=== PATIENT | female | born 1960 | race Asian ===

== ENCOUNTER 2016-09-22 15:46 | Inpatient (IN) | payer MEDICAID ==
[~2016-09-22] VITALS: Ht 152.4 cm; Wt 54.3 kg
[~2016-09-22 15:46] MED LIST: ALLO300 PO; AMLO-512 PO; ASCO500 PO; ATOR20TA86 PO; ENAL10 PO; HYDR-3110 PO; LEVO500 PO; MECL-111 PO; METF500T4 PO; PIOG45TA PO; TRAM50TA4 PO
[2016-09-22] MEDS ORDERED: NITROGLYCERIN 2% (1 GM=INCH) PACKET TP ONE (16:15)
[2016-09-22] MEDS ORDERED: ASPIRIN 81 MG CHEWABLE TABLET PO ONE (16:15)
[2016-09-22] MEDS ORDERED: NITROGLYCERIN 400 MCG/SUBLINGUAL SPRAY 4.9 GM BOTTLE SL ONE (16:15)
[2016-09-22 16:20] LABS: BASOPHILS % (AUTO) 0.9 % (0.0-2.0); EOSINOPHILS % (AUTO) 7.5 % (1.0-6.0); HEMATOCRIT 37.5 % (36-46); LYMPHOCYTES # (AUTO) 2.5 K/uL (1.0-4.8); MEAN CORPUSCULAR HEMOGLOBIN 29.4 pg (26.0-34.0); MEAN CORPUSCULAR HGB CONC 32.1 G/dL (31.0-37.0); MEAN CORPUSCULAR VOLUME 92 fL (80-100); MONOCYTES # (AUTO) 0.5 K/uL (0.1-1.0); MONOCYTES % (AUTO) 6.2 % (2.0-9.0); NEUTROPHILS # (AUTO) 4.4 K/uL (1.8-7.7); NEUTROPHILS % (AUTO) 54.4 % (40.0-70.0); PLATELET COUNT (AUTO) 274 K/uL (150-450); RED BLOOD CELL COUNT(AUTO) 4.09 MIL/uL (4.00-5.20); RED CELL DISTRIBUTION WIDTH 15.4 % (11.5-14.5)
[2016-09-22 16:33] LABS: ANION GAP 10 mmol/L (8-16); CALCIUM, TOTAL 9.1 mg/dL (8.8-10.5); CARBON DIOXIDE 28 mmol/L (22-29); CHLORIDE 102 mmol/L (98-107); GLOMERULAR FILTR. RATE CALC > 60 mL/min (>60); POTASSIUM 3.4 mmol/L (3.5-5.1); SODIUM SERUM 140 mmol/L (136-145); UREA NITROGEN, BLOOD 11 mg/dL (7-18)
[2016-09-22 16:39] LABS: ALANINE AMINOTRANSFERASE 12 U/L (12-78); ALBUMIN 3.7 g/dL (3.4-5.0); ASPARTATE AMINOTRANSFERASE 15 U/L (15-37); BILIRUBIN,TOTAL 0.2 mg/dL (0.1-1.0); CREATINE KINASE, TOTAL 66 U/L (26-192); TOTAL PROTEIN, SERUM 7.6 g/dL (6.4-8.2)
[2016-09-22 16:49] LABS: B-TYPE NATRIURETIC PEPTIDE 11 pg/mL (0-100)
[2016-09-22] MEDS ORDERED: ONDANSETRON HCL 4 MG/2 ML VIAL IVP PRN (17:00)
[2016-09-22 18:11] VITALS: BP 131/77
[2016-09-22] MEDS ORDERED: DEXTROSE 50%-WATER 25 GM/50 ML SYRINGE IVP PRN (18:15)
[2016-09-22] MEDS ORDERED: NITROGLYCERIN 2% (1 GM=INCH) PACKET TP PRN (18:15)
[2016-09-22] MEDS ORDERED: INSULIN ASPART 100 UNITS/ML SQ PRN (18:15)
[2016-09-22] MEDS ORDERED: ACETAMINOPHEN 325 MG TABLET PO PRN (18:30)
[2016-09-22] MEDS ORDERED: POTASSIUM CHLORIDE 20 MEQ ER TABLET PO PRN (18:30)
[2016-09-22] MEDS ORDERED: POTASSIUM CHL 10 MEQ/WATER 50 ML IV PRN (18:30)
[2016-09-22 18:47] LABS: GLUCOSE,POINT OF CARE 69 MG/DL (70-110)
[2016-09-22] MEDS ORDERED: PNEUMOCOCCAL VACCINE POLYVALENT 0.5 ML VIAL [PPSV23] IM ONE (19:15)
[2016-09-22 19:38] VITALS: BP 111/57
[2016-09-22] MEDS: ENALAPRIL MALEATE 10 MG TABLET PO SCH (21:13)
[2016-09-22 23:27] VITALS: BP 122/70
[2016-09-22] MEDS: HEPARIN SODIUM,PORCINE 5,000 UNITS/ML VIAL SQ SCH (23:46)
[2016-09-22] MEDS: ACETAMINOPHEN 325 MG TABLET PO PRN (23:46)
[2016-09-23 04:56] VITALS: BP 132/75
[2016-09-23 07:25] VITALS: BP 139/84
[2016-09-23] MEDS: ENALAPRIL MALEATE 10 MG TABLET PO SCH ×2 (08:35→21:54)
[2016-09-23] MEDS: MetFORMIN HCL 500 MG TABLET PO SCH ×2 (08:36→18:17)
[2016-09-23] MEDS: AmLODIPine BESYLATE 10 MG TABLET PO SCH (08:36)
[2016-09-23] MEDS: ALLOPURINOL 300 MG TABLET PO SCH (08:36)
[2016-09-23] MEDS: HEPARIN SODIUM,PORCINE 5,000 UNITS/ML VIAL SQ SCH ×2 (08:37→16:35)
[2016-09-23] MEDS: ACETAMINOPHEN 325 MG TABLET PO PRN (08:37)
[2016-09-23 11:36] VITALS: BP 130/73
[2016-09-23 16:15] VITALS: BP 137/78
[2016-09-23 19:13] VITALS: BP 134/81
[2016-09-23 23:30] VITALS: BP 139/83
[2016-09-24] MEDS: HEPARIN SODIUM,PORCINE 5,000 UNITS/ML VIAL SQ SCH ×3 (00:15→15:15)
[2016-09-24 05:29] VITALS: BP 139/79
[2016-09-24 07:29] VITALS: BP 140/82
[2016-09-24 08:40] VITALS: BP 129/83
[2016-09-24 08:42] LABS: GLUCOSE,POINT OF CARE 109 MG/DL (70-110)
[2016-09-24 08:57] LABS: GLUCOSE,POINT OF CARE 108 MG/DL (70-110)
[2016-09-24 08:57] LABS: GLUCOSE COMMENT 1 Received Meds; GLUCOSE,POINT OF CARE 110 MG/DL (70-110)
[2016-09-24 08:57] LABS: GLUCOSE,POINT OF CARE 119 MG/DL (70-110)
[2016-09-24 08:57] LABS: GLUCOSE,POINT OF CARE 83 MG/DL (70-110)
[2016-09-24 08:57] LABS: GLUCOSE COMMENT 1 Received Meds; GLUCOSE,POINT OF CARE 156 MG/DL (70-110)
[2016-09-24] MEDS ORDERED: SESTAMIBI TC99M/UD ISOTOPE 1 EA INJ INJ ONE ×2 (10:00→12:15)
[2016-09-24] MEDS ORDERED: REGADENOSON 0.4 MG/5 ML PF SYRINGE IVP ONE ×2 (10:02→17:53)
[2016-09-24 10:09] VITALS: BP 114/83
[2016-09-24] MEDS: ENALAPRIL MALEATE 10 MG TABLET PO SCH (10:36)
[2016-09-24] MEDS: ALLOPURINOL 300 MG TABLET PO SCH (10:36)
[2016-09-24] MEDS: AmLODIPine BESYLATE 10 MG TABLET PO SCH (10:36)
[2016-09-24] MEDS: MetFORMIN HCL 500 MG TABLET PO SCH (10:36)
[2016-09-24 11:30] VITALS: BP 149/89
[2016-09-24 15:19] VITALS: BP 128/76
[2016-09-24 15:28] LABS: GLUCOSE,POINT OF CARE 126 MG/DL (70-110)
[2016-09-27 17:32] LABS: GLUCOSE,POINT OF CARE 133 MG/DL (70-110)
== END 2016-09-24 17:30 | disposition home or self-care (01) | DRG 203 ==
LOC: EMS 15:48 → 5N 17:16
PROVIDERS: ADMIT Family Medicine; ATTEND Family Medicine
DX: R07.89 Other chest pain (principal); I10 Essential (primary) hypertension; E11.9 Type 2 diabetes mellitus without complications; R51 Headache; M10.9 Gout, unspecified; Z79.899 Other long term (current) drug therapy; Z79.84 Long term (current) use of oral hypoglycemic drugs; Z90.49 Acquired absence of other specified parts of digestive tract; Z86.010 Personal history of colon polyps
CPT/HCPCS: 78452; 82962; 84132; 90471; 93005; 93017; 93306; 99285; A9500; J1644; J2785

== ENCOUNTER 2017-11-10 12:41 | Emergency (ER) | payer MEDICAID ==
[~2017-11-10] VITALS: Ht 152.4 cm; Wt 59.5 kg
[~2017-11-10 12:41] MED LIST changes: -ATOR20TA86 PO; -ENAL10 PO; +ENAL10TA2 PO; -HYDR-3110 PO; -LEVO500 PO; -MECL-111 PO; -METF500T4 PO; +METF500T6 PO; -PIOG45TA PO; -TRAM50TA4 PO
[2017-11-10 12:54] LABS: GLUCOSE,POINT OF CARE 137 MG/DL (70-110)
[2017-11-10] MEDS ORDERED: KETOROLAC TROMETHAMINE 30 MG/ML VIAL IVP ONE (14:30)
[2017-11-10] MEDS ORDERED: ONDANSETRON HCL 4 MG/2 ML VIAL IVP ONE (14:30)
[2017-11-10] MEDS ORDERED: SODIUM CHLORIDE 0.45% 1,000 ML IV ONE (14:30)
[2017-11-10 14:37] LABS: BASOPHILS % (AUTO) 0.8 % (0.0-2.0); EOSINOPHILS % (AUTO) 2.1 % (1.0-6.0); HEMOGLOBIN 11.7 g/dL (12.0-16.0); LYMPHOCYTES # (AUTO) 1.9 K/uL (1.0-4.8); LYMPHOCYTES % (AUTO) 23.2 % (22.0-44.0); MEAN CORPUSCULAR HEMOGLOBIN 30.6 pg (26.0-34.0); MEAN CORPUSCULAR HGB CONC 33.5 G/dL (31.0-37.0); MEAN CORPUSCULAR VOLUME 91 fL (80-100); MONOCYTES # (AUTO) 0.4 K/uL (0.1-1.0); NEUTROPHILS # (AUTO) 5.5 K/uL (1.8-7.7); NEUTROPHILS % (AUTO) 68.9 % (40.0-70.0); PLATELET COUNT (AUTO) 220 K/uL (150-450); RED BLOOD CELL COUNT(AUTO) 3.84 MIL/uL (4.00-5.20); RED CELL DISTRIBUTION WIDTH 14.5 % (11.5-14.5)
[2017-11-10 14:50] LABS: ANION GAP 14 mmol/L (8-16); CALCIUM, TOTAL 9.1 mg/dL (8.8-10.5); CARBON DIOXIDE 25 mmol/L (22-29); CHLORIDE 96 mmol/L (98-107); CREATININE 0.73 mg/dL (0.60-1.30); GLOMERULAR FILTR. RATE CALC > 60 mL/min (>60); GLUCOSE,RANDOM 143 mg/dL (70-110); POTASSIUM 3.3 mmol/L (3.5-5.1); SODIUM SERUM 135 mmol/L (136-145); UREA NITROGEN, BLOOD 10 mg/dL (7-18)
[2017-11-10 14:58] LABS: ALANINE AMINOTRANSFERASE 14 U/L (12-78); ALBUMIN 3.7 g/dL (3.4-5.0); ALKALINE PHOSPHATASE 78 U/L (46-116); AMYLASE 82 U/L (25-115); ASPARTATE AMINOTRANSFERASE 22 U/L (15-37); BILIRUBIN,TOTAL 0.5 mg/dL (0.1-1.0); LIPASE 394 U/L (73-393); TOTAL PROTEIN, SERUM 7.8 g/dL (6.4-8.2)
[2017-11-10 15:02] LABS: APPEARANCE,URINE CLOUDY (CLEAR); BILIRUBIN,URINE NEGATIVE (NEGATIVE); GLUCOSE, URINE (UA) NEGATIVE (NEGATIVE); KETONES,URINE NEGATIVE (NEGATIVE); LEUKOCYTE ESTERASE ,URINE NEGATIVE (NEGATIVE); NITRATE,URINE NEGATIVE (NEGATIVE); OCCULT BLOOD,URINE LARGE (NEGATIVE); PROTEIN,URINE NEGATIVE (NEGATIVE); UROBILINOGEN,URINE 0.2 mg/dL (<=1.0)
[2017-11-10 15:45] VITALS: BP 137/74
[2017-11-10] MEDS ORDERED: MORPHINE SULFATE 2 MG/ML SYRINGE IVP ONE (15:45)
[2017-11-10 15:57] LABS: BACTERIA,URINE None Seen /HPF (None Seen); SQUAMOUS EPITHELIAL CELL,UR Rare /LPF (None Seen); WBC,URINE None Seen /HPF (0-5)
[2017-11-10] MEDS ORDERED: ACETAMINOPHEN 500 MG TABLET PO ONE (16:15)
== END 2017-11-10 16:41 | disposition home or self-care (01) ==
LOC: EMS 12:42
DX: G43.909 Migraine, unspecified, not intractable, without status migrainosus (principal); R60.0 Localized edema; R31.9 Hematuria, unspecified; M54.5 Low back pain; E11.9 Type 2 diabetes mellitus without complications; I10 Essential (primary) hypertension
CPT/HCPCS: 36415; 70450; 80053; 81001; 82150; 82962; 83690; 85025; 93005; 96374; 96375; 99285; J1885; J2405; J7030; J2270

== ENCOUNTER 2019-04-09 09:33 | Emergency (ER) | payer MEDICAID ==
[~2019-04-09] VITALS: Ht 154.9 cm; Wt 63.6 kg
[~2019-04-09 09:33] MED LIST changes: -AMLO-512 PO; +AMLO10TA7 PO; +METF-960 PO; -METF500T6 PO
[2019-04-09] MEDS ORDERED: METO25XL PO (09:48)
[2019-04-09 09:55] LABS: GLUCOSE,POINT OF CARE 115 MG/DL (70-110)
[2019-04-09] MEDS ORDERED: ACETAMINOPHEN 500 MG TABLET PO ONE (11:00)
[2019-04-09] MEDS ORDERED: IBUPROFEN 600 MG TABLET PO ONE (11:00)
[2019-04-09 11:19] LABS: APPEARANCE,URINE CLOUDY (CLEAR); BILIRUBIN,URINE NEGATIVE (NEGATIVE); GLUCOSE, URINE (UA) NEGATIVE (NEGATIVE); KETONES,URINE NEGATIVE (NEGATIVE); LEUKOCYTE ESTERASE ,URINE MODERATE (NEGATIVE); NITRATE,URINE NEGATIVE (NEGATIVE); OCCULT BLOOD,URINE LARGE (NEGATIVE); PROTEIN,URINE NEGATIVE (NEGATIVE); UROBILINOGEN,URINE 0.2 mg/dL (<=1.0)
[2019-04-09 11:30] LABS: BASOPHILS % (AUTO) 0.6 % (0.0-2.0); EOSINOPHILS % (AUTO) 3.5 % (1.0-6.0); HEMATOCRIT 38.9 % (36-46); HEMOGLOBIN 12.5 g/dL (12.0-16.0); LYMPHOCYTES % (AUTO) 21.1 % (22.0-44.0); MEAN CORPUSCULAR HEMOGLOBIN 30.3 pg (26.0-34.0); MEAN CORPUSCULAR HGB CONC 32.1 G/dL (31.0-37.0); MEAN CORPUSCULAR VOLUME 95 fL (80-100); MONOCYTES # (AUTO) 0.6 K/uL (0.1-1.0); MONOCYTES % (AUTO) 6.4 % (2.0-9.0); NEUTROPHILS # (AUTO) 6.6 K/uL (1.8-7.7); NEUTROPHILS % (AUTO) 68.4 % (40.0-70.0); PLATELET COUNT (AUTO) 219 K/uL (150-450); RED BLOOD CELL COUNT(AUTO) 4.11 MIL/uL (4.00-5.20); RED CELL DISTRIBUTION WIDTH 14.6 % (11.5-14.5)
[2019-04-09 11:34] LABS: BACTERIA,URINE None Seen /HPF (None Seen); RBC,URINE 0-2 /HPF (0-2); SQUAMOUS EPITHELIAL CELL,UR Few /LPF (None Seen)
[2019-04-09 11:41] LABS: ANION GAP 10 mmol/L (8-16); CALCIUM, TOTAL 9.2 mg/dL (8.8-10.5); CARBON DIOXIDE 25 mmol/L (22-29); CHLORIDE 104 mmol/L (98-107); CREATININE 0.73 mg/dL (0.60-1.30); GLOMERULAR FILTR. RATE CALC > 60 mL/min (>60); GLUCOSE,RANDOM 88 mg/dL (70-110); SODIUM SERUM 139 mmol/L (136-145); UREA NITROGEN, BLOOD 13 mg/dL (7-18)
[2019-04-09 11:56] LABS: ALANINE AMINOTRANSFERASE 13 U/L (12-78); ALBUMIN 3.8 g/dL (3.4-5.0); ALKALINE PHOSPHATASE 82 U/L (46-116); ASPARTATE AMINOTRANSFERASE 18 U/L (15-37); HCG,QUANTITATIVE 2 mIU/mL (0-6); TOTAL PROTEIN, SERUM 7.6 g/dL (6.4-8.2)
[2019-04-09] MEDS ORDERED: CEPHALEXIN MONOHYDRATE 500 MG CAPSULE PO ONE (12:15)
[2019-04-09 12:37] LABS: BILIRUBIN,TOTAL 0.4 mg/dL (0.1-1.0)
[2019-04-09 14:55] VITALS: BP 134/80
== END 2019-04-09 15:16 | disposition home or self-care (01) ==
LOC: EMS 09:36
DX: D25.9 Leiomyoma of uterus, unspecified (principal); N39.0 Urinary tract infection, site not specified; E11.9 Type 2 diabetes mellitus without complications; I10 Essential (primary) hypertension; M10.9 Gout, unspecified; Z79.899 Other long term (current) drug therapy; Z98.890 Other specified postprocedural states; Z79.84 Long term (current) use of oral hypoglycemic drugs
CPT/HCPCS: 76817; 87086

== ENCOUNTER 2019-10-11 11:10 | Inpatient (IN) | payer MEDICAID ==
[~2019-10-11] VITALS: Ht 154.9 cm; Wt 62.3 kg
[~2019-10-11 11:10] MED LIST changes: +METO25XL PO
[2019-10-11] MEDS ORDERED: ATOR10TA84 PO (11:32)
[2019-10-11] MEDS ORDERED: ASPI-556 PO (11:32)
[2019-10-11 11:59] LABS: GLUCOSE,POINT OF CARE 110 MG/DL (70-110)
[2019-10-11] MEDS ORDERED: ASPIRIN 325 MG TABLET PO ONE (12:00)
[2019-10-11] MEDS ORDERED: ONDANSETRON HCL 4 MG/2 ML VIAL IVP ONE (12:00)
[2019-10-11] MEDS ORDERED: NITROGLYCERIN 2% (1 GM=INCH) PACKET TP ONE (12:00)
[2019-10-11] MEDS: MORPHINE SULFATE 2 MG/ML SYRINGE IVP ONE ×2 (12:33→12:43)
[2019-10-11 12:49] LABS: BASOPHILS % (AUTO) 0.5 % (0.0-2.0); HEMATOCRIT 36.7 % (36-46); HEMOGLOBIN 12.2 g/dL (12.0-16.0); LYMPHOCYTES # (AUTO) 1.4 K/uL (1.0-4.8); LYMPHOCYTES % (AUTO) 18.3 % (22.0-44.0); MEAN CORPUSCULAR HEMOGLOBIN 30.5 pg (26.0-34.0); MEAN CORPUSCULAR HGB CONC 33.1 G/dL (31.0-37.0); MEAN CORPUSCULAR VOLUME 92 fL (80-100); MONOCYTES # (AUTO) 0.2 K/uL (0.1-1.0); MONOCYTES % (AUTO) 2.8 % (2.0-9.0); NEUTROPHILS # (AUTO) 5.8 K/uL (1.8-7.7); NEUTROPHILS % (AUTO) 76.4 % (40.0-70.0); PLATELET COUNT (AUTO) 241 K/uL (150-450); RED BLOOD CELL COUNT(AUTO) 3.99 MIL/uL (4.00-5.20); RED CELL DISTRIBUTION WIDTH 14.1 % (11.5-14.5)
[2019-10-11 12:59] LABS: ANION GAP 15 mmol/L (8-16); CARBON DIOXIDE 22 mmol/L (22-29); CHLORIDE 102 mmol/L (98-107); CREATININE 0.64 mg/dL (0.60-1.30); GLOMERULAR FILTR. RATE CALC > 60 mL/min (>60); GLUCOSE,RANDOM 141 mg/dL (70-110); POTASSIUM 4.1 mmol/L (3.5-5.1); SODIUM SERUM 139 mmol/L (136-145); UREA NITROGEN, BLOOD 11 mg/dL (7-18)
[2019-10-11 13:06] LABS: ALANINE AMINOTRANSFERASE 9 U/L (12-78); ALBUMIN 3.7 g/dL (3.4-5.0); ALKALINE PHOSPHATASE 67 U/L (46-116); ASPARTATE AMINOTRANSFERASE 24 U/L (15-37); BILIRUBIN,TOTAL 0.5 mg/dL (0.1-1.0); LIPASE 187 U/L (73-393)
[2019-10-11 13:15] LABS: B-TYPE NATRIURETIC PEPTIDE 155 pg/mL (0-100)
[2019-10-11] MEDS ORDERED: 0.9% SODIUM CHLORIDE 10 ML SYRINGE IVP PRN (14:00)
[2019-10-11] MEDS ORDERED: ONDANSETRON HCL 4 MG/2 ML VIAL IVP PRN (14:00)
[2019-10-11] MEDS ORDERED: ACETAMINOPHEN 325 MG TABLET PO PRN (14:00)
[2019-10-11 17:33] LABS: GLUCOSE,POINT OF CARE 107 MG/DL (70-110)
[2019-10-11 20:03] VITALS: BP 105/53
[2019-10-11] MEDS ORDERED: POTASSIUM CHL 10 MEQ/WATER 50 ML IV PRN (21:45)
[2019-10-11] MEDS ORDERED: MAGNESIUM SULFATE 4 GM/WATER 100 ML IV PRN (21:45)
[2019-10-11] MEDS ORDERED: POTASSIUM CHLORIDE 20 MEQ ER TABLET PO PRN (21:45)
[2019-10-11] MEDS ORDERED: MAGNESIUM SULFATE 2 GM/WATER 50 ML IV PRN (21:45)
[2019-10-11] MEDS: ENALAPRIL MALEATE 10 MG TABLET PO SCH (21:45)
[2019-10-11] MEDS: METOPROLOL SUCCINATE 25 MG ER TABLET PO SCH (21:45)
[2019-10-11] MEDS ORDERED: DEXTROSE 50%-WATER 25 GM/50 ML SYRINGE IVP PRN (21:45)
[2019-10-11] MEDS ORDERED: INSULIN LISPRO 100 UNITS/ML SQ PRN (21:45)
[2019-10-11] MEDS ORDERED: MAGNESIUM OXIDE 400 MG TABLET PO PRN (21:45)
[2019-10-11] MEDS ORDERED: ATORVASTATIN CALCIUM 10 MG TABLET PO SCH (22:00)
[2019-10-11] MEDS: ATORVASTATIN CALCIUM 40 MG TABLET PO SCH (22:08)
[2019-10-11 23:30] VITALS: BP 130/67
[2019-10-12 01:01] LABS: GLUCOMETER DEV NAME(LOC) 5N.1; GLUCOSE,POINT OF CARE 126 MG/DL (70-110)
[2019-10-12 05:20] VITALS: BP 128/64
[2019-10-12 06:32] LABS: GLUCOMETER DEV NAME(LOC) 5N.1; GLUCOSE,POINT OF CARE 122 MG/DL (70-110)
[2019-10-12 07:33] VITALS: BP 135/70
[2019-10-12] MEDS: METOPROLOL SUCCINATE 25 MG ER TABLET PO SCH ×2 (08:59→21:00)
[2019-10-12] MEDS: ASPIRIN 81 MG EC TABLET PO SCH (09:03)
[2019-10-12] MEDS: ASCORBIC ACID 500 MG TABLET PO SCH (09:04)
[2019-10-12] MEDS: ALLOPURINOL 300 MG TABLET PO SCH (09:04)
[2019-10-12] MEDS: MetFORMIN HCL 500 MG TABLET PO SCH ×2 (09:06→17:47)
[2019-10-12] MEDS ORDERED: ACETAMINOPHEN 650 MG/20.3 ML SOLUTION UDCUP PO PRN (10:45)
[2019-10-12] MEDS ORDERED: SODIUM CHLORIDE 0.9% 250 ML IV ONE (10:56)
[2019-10-12] MEDS ORDERED: ACETAMINOPHEN 325 MG TABLET PO PRN (11:00)
[2019-10-12] MEDS: ENALAPRIL MALEATE 10 MG TABLET PO SCH ×2 (11:36→21:20)
[2019-10-12 11:38] VITALS: BP 149/86
[2019-10-12 15:27] VITALS: BP 140/84
[2019-10-12 17:19] LABS: GLUCOMETER DEV NAME(LOC) 5N.1; GLUCOSE,POINT OF CARE 91 MG/DL (70-110)
[2019-10-12 20:00] VITALS: BP 149/62
[2019-10-12] MEDS: ATORVASTATIN CALCIUM 40 MG TABLET PO SCH (21:20)
[2019-10-13 00:31] VITALS: BP 154/79
[2019-10-13 04:45] VITALS: BP 138/73
[2019-10-13 07:17] LABS: ANION GAP 11 mmol/L (8-16); BASOPHILS % (AUTO) 1.2 % (0.0-2.0); CALCIUM, TOTAL 8.9 mg/dL (8.8-10.5); CARBON DIOXIDE 26 mmol/L (22-29); CHLORIDE 105 mmol/L (98-107); CREATININE 0.66 mg/dL (0.60-1.30); EOSINOPHILS % (AUTO) 8.7 % (1.0-6.0); GLOMERULAR FILTR. RATE CALC > 60 mL/min (>60); GLUCOSE,RANDOM 118 mg/dL (70-110); HEMATOCRIT 36.5 % (36-46); HEMOGLOBIN 12.1 g/dL (12.0-16.0); LYMPHOCYTES # (AUTO) 1.7 K/uL (1.0-4.8); LYMPHOCYTES % (AUTO) 30.3 % (22.0-44.0); MEAN CORPUSCULAR HEMOGLOBIN 30.4 pg (26.0-34.0); MEAN CORPUSCULAR HGB CONC 33.2 G/dL (31.0-37.0); MEAN CORPUSCULAR VOLUME 91 fL (80-100); MONOCYTES # (AUTO) 0.4 K/uL (0.1-1.0); MONOCYTES % (AUTO) 7.7 % (2.0-9.0); NEUTROPHILS # (AUTO) 2.9 K/uL (1.8-7.7); NEUTROPHILS % (AUTO) 52.1 % (40.0-70.0); PLATELET COUNT (AUTO) 235 K/uL (150-450); POTASSIUM 3.7 mmol/L (3.5-5.1); RED BLOOD CELL COUNT(AUTO) 3.99 MIL/uL (4.00-5.20); RED CELL DISTRIBUTION WIDTH 13.9 % (11.5-14.5); SODIUM SERUM 142 mmol/L (136-145); UREA NITROGEN, BLOOD 14 mg/dL (7-18)
[2019-10-13 08:15] VITALS: BP 149/87
[2019-10-13] MEDS: ENALAPRIL MALEATE 10 MG TABLET PO SCH (09:09)
[2019-10-13] MEDS: METOPROLOL SUCCINATE 25 MG ER TABLET PO SCH (09:09)
[2019-10-13] MEDS: ASCORBIC ACID 500 MG TABLET PO SCH (09:09)
[2019-10-13] MEDS: ALLOPURINOL 300 MG TABLET PO SCH (09:09)
[2019-10-13] MEDS: MetFORMIN HCL 500 MG TABLET PO SCH (09:09)
[2019-10-13] MEDS: ASPIRIN 81 MG EC TABLET PO SCH (09:10)
[2019-10-13 17:58] LABS: GLUCOMETER DEV NAME(LOC) 5N.1; GLUCOSE,POINT OF CARE 102 MG/DL (70-110)
[2019-10-13 17:58] LABS: GLUCOMETER DEV NAME(LOC) 5N.1; GLUCOSE,POINT OF CARE 119 MG/DL (70-110)
[2019-10-14 12:41] LABS: GLUCOMETER DEV NAME(LOC) 5S.1; GLUCOSE,POINT OF CARE 101 MG/DL (70-110)
== END 2019-10-13 11:45 | disposition home or self-care (01) | DRG 203 ==
LOC: EMS 11:14 → 5S 16:35
PROVIDERS: ADMIT Internal Medicine; ATTEND Internal Medicine
DX: R07.89 Other chest pain (principal); E11.9 Type 2 diabetes mellitus without complications; I10 Essential (primary) hypertension; Z83.3 Family history of diabetes mellitus; Z82.49 Family history of ischemic heart disease and other diseases of the circulatory system; M10.9 Gout, unspecified; I72.9 Aneurysm of unspecified site
CPT/HCPCS: 83735; 93005; 93306; J2270; J2405; J3475; J7050

== ENCOUNTER 2020-02-15 13:47 | Emergency (ER) | payer MEDICAID ==
[~2020-02-15] VITALS: Ht 152.4 cm; Wt 60.0 kg
[~2020-02-15 13:47] MED LIST changes: +ALLO-45 PO; -ALLO300 PO; -AMLO10TA7 PO; -ASCO500 PO; +ASPI-556 PO; +ATOR10TA84 PO; +ENAL-90 PO; -ENAL10TA2 PO
[2020-02-15 16:30] VITALS: BP 137/88
== END 2020-02-15 17:46 | disposition home or self-care (01) ==
LOC: EMS 13:47
DX: M25.471 Effusion, right ankle (principal); E11.9 Type 2 diabetes mellitus without complications; I10 Essential (primary) hypertension; Z79.84 Long term (current) use of oral hypoglycemic drugs; Z79.82 Long term (current) use of aspirin
CPT/HCPCS: 93971; Z7502

== ENCOUNTER 2020-04-09 21:06 | Emergency (ER) | payer MEDICAID ==
[~2020-04-09] VITALS: Ht 152.4 cm; Wt 60.9 kg
[2020-04-09] MEDS ORDERED: DiphenhydrAMINE HCL 50 MG/ML VIAL IVP STA (21:52)
[2020-04-09] MEDS ORDERED: ONDANSETRON HCL 4 MG/2 ML VIAL IVP ONE (22:00)
[2020-04-09] MEDS ORDERED: METOCLOPRAMIDE HCL 5 MG/ML 2 ML VIAL IVP ONE (22:00)
[2020-04-09 23:15] LABS: EOSINOPHILS % (AUTO) 2.8 % (1.0-6.0); HEMATOCRIT 37.7 % (36-46); LYMPHOCYTES # (AUTO) 1.4 K/uL (1.0-4.8); LYMPHOCYTES % (AUTO) 19.2 % (22.0-44.0); MEAN CORPUSCULAR HEMOGLOBIN 29.6 pg (26.0-34.0); MEAN CORPUSCULAR HGB CONC 31.8 G/dL (31.0-37.0); MEAN CORPUSCULAR VOLUME 93 fL (80-100); MONOCYTES # (AUTO) 0.3 K/uL (0.1-1.0); MONOCYTES % (AUTO) 3.7 % (2.0-9.0); NEUTROPHILS # (AUTO) 5.1 K/uL (1.8-7.7); NEUTROPHILS % (AUTO) 73.3 % (40.0-70.0); PLATELET COUNT (AUTO) 242 K/uL (150-450); RED BLOOD CELL COUNT(AUTO) 4.05 MIL/uL (4.00-5.20); RED CELL DISTRIBUTION WIDTH 14.5 % (11.5-14.5)
[2020-04-09 23:31] LABS: ANION GAP 10 mmol/L (8-16); CALCIUM, TOTAL 9.1 mg/dL (8.8-10.5); CARBON DIOXIDE 26 mmol/L (22-29); CHLORIDE 100 mmol/L (98-107); GLOMERULAR FILTR. RATE CALC > 60 mL/min (>60); GLUCOSE,RANDOM 166 mg/dL (70-110); POTASSIUM 3.8 mmol/L (3.5-5.1); SODIUM SERUM 136 mmol/L (136-145); UREA NITROGEN, BLOOD 13 mg/dL (7-18)
[2020-04-09 23:40] LABS: ALANINE AMINOTRANSFERASE 18 U/L (12-78); ALBUMIN 3.8 g/dL (3.4-5.0); ALKALINE PHOSPHATASE 72 U/L (46-116); ASPARTATE AMINOTRANSFERASE 25 U/L (15-37); BILIRUBIN,TOTAL 0.4 mg/dL (0.1-1.0); TOTAL PROTEIN, SERUM 7.8 g/dL (6.4-8.2)
[2020-04-09] MEDS ORDERED: KETOROLAC TROMETHAMINE 30 MG/ML VIAL IVP ONE (23:45)
[2020-04-09] MEDS ORDERED: DEXAMETHASONE SOD PHOS 4 MG/ML 5 ML VIAL IVP ONE (23:45)
[2020-04-09] MEDS ORDERED: ACETAMINOPHEN 500 MG TABLET PO ONE (23:45)
[2020-04-09] MEDS ORDERED: SODIUM CHLORIDE 0.9% 1,000 ML IV ONE (23:45)
[2020-04-10 02:09] LABS: COVID AG,FIA SOURCE NASOPHARYNGEAL
[2020-04-10] MEDS ORDERED: SODIUM CHLORIDE 0.9% 100 ML ONE (02:09)
[2020-04-10] MEDS ORDERED: IOVERSOL 350 MG/ML 100 ML VIAL ONE (02:09)
[2020-04-10 05:58] VITALS: BP 126/70
== END 2020-04-10 06:05 | disposition home or self-care (01) ==
LOC: EMS 21:06
DX: G44.209 Tension-type headache, unspecified, not intractable (principal); E11.9 Type 2 diabetes mellitus without complications; I10 Essential (primary) hypertension; Z20.828 Contact with and (suspected) exposure to other viral communicable diseases; Z79.82 Long term (current) use of aspirin; Z79.84 Long term (current) use of oral hypoglycemic drugs
CPT/HCPCS: 36415; 70450; 70496; 70498; 80053; 82962; 84484; 85025; 86850; 86900; 86901; 87426; 93005; 96361; 96374; 96375 ×2; 99285; J1100; J1200; J1885; J2765; J7030; J7050; Q9967; U0003